=== PATIENT | female | born 1950 | race Caucasian/White ===

== ENCOUNTER → 2018-04-15 | Outpatient (CLI) | payer OTHER, BC | LOC: SBRMNEURO 21:00 | PROVIDERS: ATTEND Physician Assistant Medical | DX: G47.33 Obstructive sleep apnea (adult) (pediatric) (principal); G47.36 Sleep related hypoventilation in conditions classified elsewhere ==

== ENCOUNTER → 2019-04-11 | Outpatient (CLI) | payer OTHER, BC | LOC: BRMIMAGING 10:52 ==